=== PATIENT | male | born 1975 | race Caucasian/White ===

== ENCOUNTER 2017-12-02 07:51 | Emergency (ER) | payer SELFPAY ==
[~2017-12-02] VITALS: Ht 190.5 cm; Wt 127.0 kg
[2017-12-02] MEDS ORDERED: KETOROLAC TROMETHAMINE 60 MG/2 ML VIAL IM ONE (08:45)
[2017-12-02 09:12] VITALS: BP 160/100
== END 2017-12-02 09:17 | disposition home or self-care (01) ==
LOC: FSED 07:51
DX: K02.9 Dental caries, unspecified (principal); K04.7 Periapical abscess without sinus; I10 Essential (primary) hypertension; F17.210 Nicotine dependence, cigarettes, uncomplicated
CPT/HCPCS: 99282; J1885